=== PATIENT | female | born 1955 ===

== ENCOUNTER 2017-10-02 00:22 | Inpatient (IN) | payer BC ==
[~2017-10-02] VITALS: Ht 124.5 cm; Wt 55.8 kg
[~2017-10-02 00:22] MED LIST: ANAS1TAB34 PO; CLON0.1T14 PO; OSPE60TA2 PO; OXYC-857 PO; PRAV20TA65 PO; VALS1TAB2 PO
[2017-10-02 10:53] VITALS: BP 129/80
[2017-10-02] MEDS ORDERED: PROPOFOL(*)1000 MG/100 ML VIAL 100 ML ONE (11:59)
[2017-10-02] MEDS ORDERED: ceFAZolin(*) 2GM/D5W 50ML 50 ML IVPB ONE (12:00)
[2017-10-02] MEDS ORDERED: LIDOCAINE/SOD BICARB 8.4% SYR ID ONE (12:00)
[2017-10-02] MEDS ORDERED: NORMOSOL R SOLN(*) 1000 ML BAG 1,000 ML IV PRN (12:00)
[2017-10-02] MEDS ORDERED: MIDAZOLAM 2 MG/2 ML VIAL IVP ONE (12:00)
[2017-10-02] MEDS ORDERED: FAMOTIDINE 20 MG TAB PO ONE (12:00)
[2017-10-02] MEDS ORDERED: THROMBIN (BOVINE) 20,000 UNIT VIAL ONE (12:07)
[2017-10-02] MEDS ORDERED: BUPIVACAIN 0.25% INJ 50ML VIAL ONE (12:07)
[2017-10-02] MEDS ORDERED: DEXAMETHASONE SOD PHOS 10MG/ML ONE (12:17)
[2017-10-02] MEDS ORDERED: METOCLOPRAMIDE 10 MG/2 ML SDV ONE (12:17)
[2017-10-02] MEDS ORDERED: ONDANSETRON 4 MG/2 ML VIAL ONE (12:17)
[2017-10-02] MEDS ORDERED: PROPOFOL EMUL(*) 10MG/ML 20 ML 20 ML ONE (12:17)
[2017-10-02] MEDS ORDERED: LIDOCAINE MPF 1% 5 ML VIAL ONE (12:17)
[2017-10-02] MEDS ORDERED: fentaNYL CITR 250 MCG/5 ML AMP ONE (12:20)
[2017-10-02] MEDS ORDERED: ROCURONIUM BROM 10 MG/ML 5 ML ONE (13:30)
[2017-10-02] MEDS ORDERED: ACETAMINOPHEN(*)1000 MG/100 ML 100 ML IVPB ONE (13:31)
[2017-10-02] MEDS ORDERED: LABETALOL HCL 100 MG/20ML VIAL ONE (13:55)
[2017-10-02] MEDS ORDERED: NS 0.9% IRRIGATION 1000ML PLCT IR ONE (16:13)
[2017-10-02] MEDS ORDERED: fentaNYL CITR 100 MCG/2 ML AMP ONE ×2 (16:56→17:18)
--- NOTE | 2017-10-02 16:56 | RADIOLOGY IMAGING REPORT ---
FACILITY: [facility] PATIENT NAME: Bonnie Lainez : 1955 MR: [id number] V: [id number] EXAM DATE: ORDERING PHYSICIAN: ROSS SINCLAIR TECHNOLOGIST: Location: [facility] Patient: Bonnie Lainez : 1955 Visit/Account:[id number] Date of Sevice: 10/02/2017 Exam type: LUMBAR SPINE 1 VIEW, LUMBAR SPINE 1 VIEW Indication: L4 S1 laminectomy with hardware removal Comparison: None available FINDINGS: There are single lateral images for each accession number. First image from 1:13 PM demonstrates surgical hardware posterior to the L3 level. There is a interbo dy disc spacer at L5-S1. In addition, there is grade 1 anterolisthesis of L4 on L5. Second image from 3:53 PM demonstrates placement of L4-S1 posterior fusion hardware. No visualized co mplication. There is near complete resolution of previously identified anterolisthesis of L4 on L5. IMPRESSION: 1. Guidance provided for laminectomy and lumbosacral fusion. Report Dictated By: Chico Castillo MD at 10/02/2017 4:47 PM Report E-Signed By: Chico Castillo MD at 10/02/2017 4:52 PM WSN:[id number]
--- NOTE | 2017-10-02 16:57 | RADIOLOGY IMAGING REPORT ---
FACILITY: [facility] [place], [place] PATIENT NAME: Bonnie Lainez : 1955 MR: [id number] V: [id number] EXAM DATE: ORDERING PHYSICIAN: ROSS SINCLAIR TECHNOLOGIST: Location: [facility] Patient: Bonnie Lainez : 1955 Visit/Account:[id number] Date of Sevice: 10/02/2017 Exam type: LUMBAR SPINE 1 VIEW, LUMBAR SPINE 1 VIEW Indication: L4 S1 laminectomy with hardware removal Comparison: None available FINDINGS: There are single lateral images for each accession number. First image from 1:13 PM demonstrates surgical hardware posterior to the L3 level. There is a interbo dy disc spacer at L5-S1. In addition, there is grade 1 anterolisthesis of L4 on L5. Second image from 3:53 PM demonstrates placement of L4-S1 posterior fusion hardware. No visualized co mplication. There is near complete resolution of previously identified anterolisthesis of L4 on L5. IMPRESSION: 1. Guidance provided for laminectomy and lumbosacral fusion. Report Dictated By: Chico Castillo MD at 10/02/2017 4:47 PM Report E-Signed By: Chico Castillo MD at 10/02/2017 4:52 PM WSN:[id number]
[2017-10-02] MEDS ORDERED: BISACODYL 10 MG SUPP PR PRN (17:30)
[2017-10-02] MEDS ORDERED: diphenhydrAMINE 25 MG CAP PO PRN (17:30)
[2017-10-02] MEDS ORDERED: FLUSH 10 ML SYR IVP PRN (17:30)
[2017-10-02] MEDS ORDERED: MAGNESIUM HYDROXIDE* 30ML UDCP PO PRN (17:30)
[2017-10-02] MEDS ORDERED: BENZOCAINE/MENTHOL 1 EACH LOZG PO PRN (17:30)
[2017-10-02] MEDS ORDERED: ACETAMINOPHEN(*)1000 MG/100 ML 100 ML IVPB PRN (17:30)
[2017-10-02] MEDS ORDERED: ACETAMINOPHEN 500 MG TAB PO PRN (17:30)
[2017-10-02] MEDS ORDERED: LR(*) 1000 ML BAG 1,000 ML IV PRN (17:30)
[2017-10-02] MEDS ORDERED: ONDANSETRON 4 MG/2 ML VIAL IVP PRN (17:30)
[2017-10-02] MEDS ORDERED: oxyCODONE HCL 5 MG CAP ONE (17:56)
[2017-10-02 18:13] VITALS: BP 141/92
[2017-10-02 18:30] VITALS: BP 140/63
--- NOTE | 2017-10-02 18:33 | OPERATIVE REPORT 1 ---
EVENT DATE: October 02, 2017 SURGEON: Deni Barbosa MD ANESTHESIOLOGIST: Randolph Aburto MD ANESTHESIA: General endotracheal SCIENTIFIC SOFTWARE DEVELOPER: TY Smith PREOPERATIVE DIAGNOSIS L5-S1 failure of fusion with adjacent segment L4-L5 spondylolisthesis, spinal stenosis. POSTOPERATIVE DIAGNOSIS L5-S1 failure of fusion with adjacent segment L4-L5 spondylolisthesis, spinal stenosis. PROCEDURE PERFORMED 1. Removal of L5-S1 instrumentation with exploration of fusion. 2. L4-L5 laminectomy and lateral recess decompression. 3. L4 to S1 posterolateral instrumented fusion. IV FLUIDS 1600 mL. ESTIMATED BLOOD LOSS 250 mL. IMPLANTS 6.5 mm x 45 mm polyaxial Reline pedicle screw from [employer], 7.5 mm x 35 mm polyaxial Reline pedicle screw from [employer] x 2, 7.5 x 40 mm polyaxial Reline pedicle screw from [employer] x 1, 7.5 x 45 mm polyaxial Reline pedicle screws from [employer] x 2, Reline locking caps x 6, a 5.5 x 55 mm lordotic connecting jacqueline from [employer], and a 5.5 mm x 60 mm lordotic connecting jacqueline from from [employer]. SPECIMENS None. DRAINS A 10 mm flat Vamsi-Tyson drain through the back. COMPLICATIONS None. DISPOSITION Post anesthesia care unit. INDICATIONS FOR SURGERY Ms. Lainez is a 61-year-old female status post L5-S1 laminectomy. She had ongoing back pain and then a return of lower extremity pain, numbness and tingling as well as decreased walking tolerance secondary to a sensation of heaviness in her legs. Physical examination at the time of her visit with ky was essentially normal, but her imaging studies were suggestive that she may have a nonunion of her fusion at the L5-S1 level. 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 Additionally, the imaging studies showed an L4-L5 spondylolisthesis and the MRI showed significant spinal stenosis at that L4-L5 level adjacent to the previously attempted fusion. Secondary to ongoing pain, numbness and tingling in the legs as well as in the back, Ms. Lainez was offered and elected to undergo L4 through S1 revision fusion with L4-L5 laminectomy and exploration of the fusion mass at L5-S1. Prior to surgery, I explained in detail to the patient the possible risks of surgery, including the risk of nerve injury, persistent and/or worsening pain, spinal fluid leak, infection or meningitis, excessive bleeding, paralysis, , blindness, sexual dysfunction, blood vessel injury, injury to neighboring organs, need for further surgery, bowel and bladder dysfunction, instability, autonomic nervous system dysfunction as well as the potential for unforeseen medical and surgical complications. An understanding that in general spinal surgery is more predictive in improving extremity discomfort than axial spine pain and arresting the progression of spinal cord dysfunction rather than improving it was stressed. The risks of junctional degeneration, bone graft donor morbidity, the differences in efficacy between local bone graft, autologous iliac crest bone graft and allograft, the FDA status of the instrumentation, the possible need for further surgery, the risk of non-healing and instrumentation failure, as well as chronic pain, were also explained. Due to the revision nature of the procedure, the patient understands that the pertinent complications are increased due to the difficulties with surgical dissection and soft tissue manipulation. This includes but is not limited to the risk of increased infection, dural tear, scarring, neural injury, vessel injury, bowel and bladder dysfunction as well as sexual dysfunction. DESCRIPTION OF PROCEDURE On the date of surgery, the patient was admitted to the preoperative hold area, and all questions were answered. Operative site was identified and marked by myself. The patient was taken to the operating room, and after identification of the patient and the operative site, administration of antibiotics and completion of anesthesia, the patient was prepped and draped in the prone position on a Vamsi table. During this time and the entire operation, care was taken to maintain appropriate perfusion pressures during anesthesia. All bony protuberances and soft tissues were well padded in the standard fashion. Preoperative prophylactic antibiotics were administered according to the appropriate timing schedule. At the conclusion of the procedure, the sponge and needle count were correct x 2. Baseline neurophysiologic monitoring was obtained. Prior to surgery, I discussed in detail with the patient the value of electrophysiological monitoring. The patient understands that at times monitoring may cease to be informative due to the intrinsic disease of the spinal cord or peripheral nerve roots, and not to any intraoperative event. If monitoring is unobtainable or lost in the absence of correctable maneuver, the patient has given permission for continuation of the operative procedure, understanding that the spinal cord and nerve roots cannot be monitored any further. The surgeon in this situation is now blinded to any adverse changes in neural function, and therefore is unable to make any corrective maneuvers to alter this course. The patient understand that upon awakening from anesthesia, she may be paralyzed or experience worsening of neurologic function. Throughout the procedure, there were no significant changes in neurophysiologic monitoring. Final time out was undertaken by members of the operating team to confirm correct patient, correct levels and correct surgery. An incision was then made in the skin over the intended surgical levels, and dissection was carried down through the subcutaneous tissue to the level of the deep fascia. The deep fascia was elevated off the posterior elements in a subperiosteal manner, and we dissected through significant amounts of scar tissue to expose the pedicle screws both on the right and the left at L5 and S1. After the spinal instrumentation was fully exposed, appropriate tools were used to remove all necessary spinal implants using the curette, Bovie, pituitary and gentle spinal manipulation. A thorough dissection of the fusion mass was performed to inspect for evidence of pseudo arthrosis. There was obvious pseudo arthrosis identified with gross motion when removing the hardware. The pseudo arthrosis was thoroughly decorticated towards the end of the procedure down to bleeding bone, and then a combination of local bone graft, allograft and single donor allograft stem cell substitute with osteocyte concentrations was used. We then identified the L4-L5 level and specifically identified the L4 lamina. The spinous process of the lamina was removed, and the lamina was then thinned bilaterally with the use of a rongeur. A small curved curette was used to undermine the inferior insertion of the ligamentum flavum on the undersurface of the inferior lamina at L3. All dural adhesions were freed from the surrounding bone and ligaments with the use of a [place] and [place] prior to the use of the Kerrison punch. A 4-0 Kerrison punch was then used along with the high speed drill to perform midline decompression. A bilateral lateral recess decompression was then performed utilizing 3-0 and 4-0 Kerrison rongeurs to thoroughly decompress the lateral recesses at the L4-L5 level followed by foraminotomies of the L5 nerve roots. The [place] was passed around the exiting nerve root to confirm that they were free without any compression. Utilizing the old pedicle screw holes, we replaced pedicle screws in the L5 and S1 level. We then carefully identified the appropriate starting point for L4 pedicle screws at approximately the intersection of the transverse process, the superior aspect of the pars interarticularis and the lateral border of the L3- L4 facet. A pedicle probe was advanced against resistance through the isthmus of the pedicle and into the vertebral body. A ball tip feeler was then used to ensure that there was bony breaching superiorly, inferiorly, medially, laterally or distally within the tract of the pedicle screw. Pedicle screws were then placed bilaterally at L4. Electrophysiological monitoring was used to test those screws, and they all tested appropriately. There was no evidence of bony breaching at that time. We then placed rods and began to reduce the L4- L5 split. Unfortunately on the left side, the pedicle screw pulled out. I then removed the construct on that side and re-probed and found that the pedicle had fractured, primarily inferiorly. We therefore went ahead and placed a more robust screw, specifically a 7.5 versus a 6.5, and reattempted reduction. Again it seems that this screw pulled out somewhat. However, the screw tested normally with electrophysiological monitoring, so we elected to leave it. Lateral radiographs were then obtained after the rods had been placed , and the set screws tightened. The x-rays confirmed appropriate placement of the orthopedic implants. The wound was then irrigated with copious sterile saline solution and the pseudo arthrosis on bilateral L5-S1 levels was taken down with a high speed jeanne, and we decorticated the transverse processes of L4 bilaterally. A combination of cancellous chips, local bone and another allograft bone graft substitute was used to pack the lateral recesses with bone graft. The wound was then closed in layers using interrupted sutures for the deep fascia, inverted interrupted sutures for the subcutaneous tissue, and then a running subcuticular skin stitch. Sponge and needle counts were correct x 2. A 10 mm flat Vamsi-Tyson drain was left deep to the fascia. POSTOPERATIVE CARE PLAN The patient will remain in the hospital until she meets discharge criteria, including passing PT, tolerating p.o. and with good pain control on oral pain meds. She will follow up in my clinic in two weeks time for examination and wound check. MARCELINO
[2017-10-02 18:45] VITALS: BP 143/73
--- NOTE | 2017-10-02 19:47 | Hospitalist Progress Note ---
Subjective Progress Notes Subjective Patient seen post-op. Reviewed PMHx and medications. At present she only c/o surgical site pain. No CP/SOB/N/V. Physical Exam Vital Signs Date Time Temp Pulse Resp B/P (MAP) Pulse Ox O2 Delivery O2 Flow Rate FiO2 10/02/17 18:45 73 143/73 (96) 100 Nasal Cannula 2.0 10/02/17 18:13 12 10/02/17 18:13 98.0 Intake and Output 10/03/17 07:00 Intake Total 1750 ml Output Total 410 ml Balance 1340 ml Intake Oral 100 ml IV Total 1650 ml Output Estimated Blood Loss 300 ml Other 110 ml General Appearance: Alert, Awake Cardiovascular: Regular Rate and Rhythm Respiratory: Clear to Auscultation Assessment and Plan Problems: (1) HTN (hypertension) Status: Chronic Assessment & Plan: She has been managed with valsartan HCTZ 160/12.5 one-half tab daily. Will monitor BPs and resume the valsartan as needed. (2) Chronic pain Status: Chronic Assessment & Plan: She has been on gabapentin 400mg qHS. Will continue same regimen. (3) Breast cancer Status: Chronic Assessment & Plan: She has been managed with Arimidex. She is also on Osphena. DONNA ORO MD Oct 02, 2017 19:47
[2017-10-02] MEDS: DIAZEPAM 5 MG TAB PO PRN (20:06)
[2017-10-02] MEDS: ANASTROZOLE 1 MG TAB PO SCH (20:59)
[2017-10-02] MEDS: PATIENT'S OWN MED PO SCH (21:00)
[2017-10-02] MEDS: PRAVASTATIN SOD 20 MG TAB PO SCH (21:10)
[2017-10-02] MEDS: ceFAZolin(*) 2GM/D5W 50ML 50 ML IVPB SCH (21:10)
[2017-10-02] MEDS: DOCUSATE SODIUM 100 MG CAP PO SCH (21:10)
[2017-10-02] MEDS: APAP/HYDROCODONE 325/5 TAB PO PRN (21:26)
[2017-10-02 21:27] VITALS: BP 141/78
[2017-10-02] MEDS: oxyCODONE HCL 5 MG CAP PO PRN (22:48)
[2017-10-02 23:34] VITALS: BP 135/59
[2017-10-03] MEDS: APAP/HYDROCODONE 325/5 TAB PO PRN ×5 (01:20→19:25)
[2017-10-03] MEDS: oxyCODONE HCL 5 MG CAP PO PRN ×5 (02:29→20:21)
[2017-10-03 02:30] VITALS: BP 125/72
[2017-10-03] MEDS: DIAZEPAM 5 MG TAB PO PRN ×4 (04:05→22:34)
[2017-10-03] MEDS: ceFAZolin(*) 2GM/D5W 50ML 50 ML IVPB SCH ×2 (04:26→08:56)
[2017-10-03 08:06] LABS: PLATELET COUNT, AUTOMATED 288 K/uL (150-450)
[2017-10-03 08:08] VITALS: BP 137/73
[2017-10-03] MEDS: DOCUSATE SODIUM 100 MG CAP PO SCH ×2 (08:56→20:21)
--- NOTE | 2017-10-03 08:56 | Hospitalist Progress Note ---
Subjective Progress Notes Subjective She reports doing well this AM. Physical Exam Vital Signs Date Time Temp Pulse Resp B/P (MAP) Pulse Ox O2 Delivery O2 Flow Rate FiO2 10/03/17 08:08 98.1 20 137/73 (94) 96 Room Air 10/03/17 02:30 96 10/02/17 18:45 2.0 General Appearance: Alert, Awake Cardiovascular: Regular Rate and Rhythm Respiratory: Clear to Auscultation Result Diagram: 10/03/17 0757 10/03/17 0757 Assessment and Plan Problems: (1) HTN (hypertension) Status: Chronic Assessment & Plan: BPs have been acceptable. She has been managed with valsartan HCTZ 160/12.5 one-half tab daily. Will continue to monitor BPs and resume the valsartan as needed. (2) Chronic pain Status: Chronic Assessment & Plan: She has been on gabapentin 400mg qHS. Continue same regimen. (3) Breast cancer Status: Chronic Assessment & Plan: She has been managed with Arimidex. She is also on Osphena. Exam Sepsis Risk: No Definite Risk DONNA ORO MD Oct 03, 2017 08:56
[2017-10-03] MEDS: VALSARTAN 80 MG TAB PO SCH (09:00)
[2017-10-03] MEDS: ANASTROZOLE 1 MG TAB PO SCH (09:04)
[2017-10-03 11:09] VITALS: Ht 124.5 cm; Wt 55.8 kg
--- NOTE | 2017-10-03 13:42 | RADIOLOGY IMAGING REPORT ---
FACILITY: [facility] PATIENT NAME: Bonnie Lainez : 1955 MR: [id number] V: [id number] EXAM DATE: ORDERING PHYSICIAN: ROSS SINCLAIR TECHNOLOGIST: Location: [facility] Patient: Bonnie Lainez : 1955 Visit/Account:[id number] Date of Sevice: 10/03/2017 Exam type: LUMBAR SPINE 2 OR 3 VIEW History: post op Comparison: October 02, 2017. Findings: AP and lateral views of the lumbar spine demonstrate bilateral pedicle screws and posterior fixation rods at L4-5 and L5-S1. Intervertebral support cage also noted at L5-S1. There is mild disc space n arrowing at L4-5 The vertebral bodies appear in good anatomic alignment.. Incidentally noted are oswald rgical clips the right upper quadrant of the abdomen and moderate vascular calcifications in the abdo adelaida aorta IMPRESSION: 1. Postoperative changes from posterior fusion at L4, L5 and S1 with the vertebral bodies appearing in good anatomic alignment Report Dictated By: Gladis Leavitt MD at 10/03/2017 1:36 PM Report E-Signed By: Gladis Leavitt MD at 10/03/2017 1:38 PM WSN:[email or web address]
[2017-10-03 14:32] VITALS: BP 128/65
[2017-10-03 15:04] VITALS: BP 124/64
[2017-10-03 19:47] VITALS: BP 127/68
[2017-10-03] MEDS: PRAVASTATIN SOD 20 MG TAB PO SCH (20:21)
[2017-10-03] MEDS: PATIENT'S OWN MED PO SCH (20:22)
[2017-10-03 22:36] VITALS: BP 124/64
[2017-10-04] MEDS: APAP/HYDROCODONE 325/5 TAB PO PRN ×4 (02:16→20:26)
[2017-10-04 02:18] VITALS: BP 138/66
[2017-10-04] MEDS: oxyCODONE HCL 5 MG CAP PO PRN ×4 (05:10→20:58)
[2017-10-04] MEDS: DIAZEPAM 5 MG TAB PO PRN ×3 (06:05→19:41)
[2017-10-04 07:37] VITALS: BP 126/64
[2017-10-04] MEDS: ANASTROZOLE 1 MG TAB PO SCH (08:24)
[2017-10-04] MEDS: VALSARTAN 80 MG TAB PO SCH (08:24)
[2017-10-04] MEDS: DOCUSATE SODIUM 100 MG CAP PO SCH ×2 (08:24→20:25)
[2017-10-04 11:36] VITALS: BP 132/71
[2017-10-04 15:12] VITALS: BP 113/63
[2017-10-04 19:55] VITALS: BP 116/64
[2017-10-04] MEDS: PRAVASTATIN SOD 20 MG TAB PO SCH (20:26)
[2017-10-04] MEDS: PATIENT'S OWN MED PO SCH (20:26)
[2017-10-04] MEDS: HYDROmorphone HCL 2 MG/ML SDV IVP PRN (22:23)
[2017-10-05] MEDS: APAP/HYDROCODONE 325/5 TAB PO PRN ×2 (00:38→09:48)
[2017-10-05] MEDS: DIAZEPAM 5 MG TAB PO PRN ×2 (03:14→09:49)
[2017-10-05 06:46] VITALS: BP 121/75
[2017-10-05] MEDS: oxyCODONE HCL 5 MG CAP PO PRN (07:37)
[2017-10-05] MEDS: VALSARTAN 80 MG TAB PO SCH (07:37)
[2017-10-05] MEDS: DOCUSATE SODIUM 100 MG CAP PO SCH (07:37)
[2017-10-05] MEDS: ANASTROZOLE 1 MG TAB PO SCH (07:37)
[2017-10-05] MEDS ORDERED: PER PO (08:45)
[2017-10-05] MEDS ORDERED: DOCU240C84 PO (08:45)
[2017-10-05] MEDS ORDERED: DIA5 PO (08:46)
[2017-10-05] MEDS: HYDROmorphone HCL 2 MG/ML SDV IVP PRN (09:50)
== END 2017-10-05 10:10 | disposition home or self-care (01) | DRG 460 ==
LOC: OR 00:22 → MED 18:13
PROVIDERS: ADMIT Orthopaedic Surgery; ATTEND Orthopaedic Surgery
PROC: 0SP304Z Removal of Internal Fixation Device from Lumbosacral Joint, Open Approach (ICD-10-PCS; 2017-10-02)
PROC: 0SG0071 Fusion of Lumbar Vertebral Joint with Autologous Tissue Substitute, Posterior Approach, Posterior Column, Open Approach (ICD-10-PCS; 2017-10-02)
PROC: 0SG3071 Fusion of Lumbosacral Joint with Autologous Tissue Substitute, Posterior Approach, Posterior Column, Open Approach (ICD-10-PCS; principal; 2017-10-02 13:37)
PROC: 01NB0ZZ Release Lumbar Nerve, Open Approach (ICD-10-PCS; 2017-10-02 13:37)
DX: T84.296A Other mechanical complication of internal fixation device of vertebrae, initial encounter (principal); M96.0 Pseudarthrosis after fusion or arthrodesis; M43.16 Spondylolisthesis, lumbar region; M48.061 Spinal stenosis, lumbar region without neurogenic claudication; M54.16 Radiculopathy, lumbar region; I10 Essential (primary) hypertension; G89.29 Other chronic pain; F32.9 Major depressive disorder, single episode, unspecified; Y79.2 Prosthetic and other implants, materials and accessory orthopedic devices associated with adverse incidents; Z87.891 Personal history of nicotine dependence; Z85.3 Personal history of malignant neoplasm of breast; Z90.13 Acquired absence of bilateral breasts and nipples; Z79.811 Long term (current) use of aromatase inhibitors
CPT/HCPCS: 36415; 72020; 72100; 82310; 82374; 82435; 82565; 82947; 84132; 84295; 84520; 85025; 86850; 86900; 86901; 97161; C1713; J0131; J0690; J1100; J1170; J2001; J2250; J2405; J2704; J2765; J3010; J3490; J9999